=== PATIENT | male | born 1950 | race Caucasian/White ===

== ENCOUNTER 2024-06-13 22:35 | Emergency (ER) | payer MEDICARE, SELFPAY ==
[2024-06-13 22:46] VITALS: BP 122/81
--- NOTE | 2024-06-14 01:13 | ED.GENMED ---
History of Present Illness
General
Chief Complaint: Musculo-Skeletal Complaint
Source: patient and family (Son)
Exam Limitations: none
Time Seen by Provider: 06/14/24 00:29
History of Present Illness
History of Present Illness:
This is a 74 year old male that is brought in by son with Multiple complaints. Son states that he has been c/o pain in the left hand. Patient fell 10 days ago and fractured his clavicle. Patient was seen at [facility]. States that he has not been able
to move his fingers much but this has also been since his stroke. States that he has constipation and then when he moves his bowels he will have frequent stools. States that there is also now starting a sore on his buttocks. States that he has
periods where they feel he is incoherent and they are concerned that he is having mini strokes. States that he has been nauseated. Denies any fever, chills, chest pain, SOB, abd pain, vomiting, diarrhea, headache, dizziness, urinary burning.
Past History
Past History
ED Past Medical History: CVA (left sided weakness), GERD, Hypercholesterolemia, NIDDM, [place] (Multiple) and Other (Neuropathy, Armijo's palsey, PAD, Renal calculus, )
ED Past Surgical History: Cardiac (Stent, CABG, Ablation, Pacer/ Defibulator), Orthopedic (Right 2nd and 3rd tips of toes amputated) and Other (Right leg bypass )
Social History
Tobacco: Smoker
Alcohol: Occasional
Personal:
Living: with family (Son)
Review of Systems
Review of Systems
Other source history: family
All Other Systems: ROS reviewed and negative except as documented in HPI and ROS
Constitutional: Reports no symptoms; Denies fever or chills
EENT: Reports no symptoms
Respiratory: Reports no symptoms; Denies cough or trouble breathing
Cardiac: Reports no symptoms; Denies chest pain
ABD/GI: Reports nausea; Denies abdominal pain, vomiting or diarrhea
: Reports no symptoms; Denies dysuria, frequency or urgency
Musculoskeletal: Reports no symptoms
Skin: Reports no symptoms
Neurological: Reports no symptoms; Denies dizzy or headache
Psychiatric: Reports no symptoms
Phy Exam
General Physical Exam
General Presentation: no apparent distress
General age: appears stated age
General Skin: warm and dry
General Habitus: debilitated and elderly
General Mental: alert
General Hydration: appears well hydrated
ENT Exam
ENT Exam: TM's normal, pharynx normal and neck supple
Eye Exam
Eye Exam: EOMI
Cardiovascular Exam
Cardiovascular Exam: regular rate/rhythm, no edema and normal peripheral pulses
Pulmonary Exam
Pulmonary Exam: lungs clear, no respiratory distress, no rales, chest non tender, no crackles, no rhonchi, no wheezing and no cough
Gastrointestinal Exam
Gastrointestinal Exam: normal bowel sounds, non tender, soft, no organomegaly, no pulsatile mass, non distended and other (Stool negative for blood)
Musculoskeletal Exam
Musculoskeletal Exam: no edema and other (Left arm shoulder immobilizer. Left hand and fingers slightly swollen, barely moving his fingers. Negative for discomfort over the hand and fingers with palpation. Moving all other extremities)
Skin Exam
Skin Exam: normal color, warm/dry, no rash, no petechia and other (Small sacral decub noted)
Psychiatric Exam
Psychiatric Exam: normal mood/affect
Course
Orders/Labs/Results
Orders:
Orders
06/14/24 01:11
CT Head W/o Iv Contrast Urgent
Comment: CVA
Reason For Exam: change in mental status
Wrist, Left 3 Views CR [CR Wrist - Left Min 3 Views] Urgent
Comment:
Reason For Exam: Pain
06/14/24 01:30
Complete Blood Count/With Diff Urgent
Comprehensive Metabolic Panel Urgent
Abnormal Lab Results
06/14/24
01:30
RBC 4.59 L 10^6/uL
(4.70-6.10)
MCH 31.6 H pg
(27.0-31.0)
MPV 10.9 H fL
(7.4-10.4)
Absolute Monos (auto) 1.0 H 10^3/uL
(0.1-0.6)
Monocytes % 11.1 H %
(1.7-9.3)
BUN 23 H mg/dl
(9-20)
06/14/24 01:30
06/14/24 01:30
Vital Signs
Initial and Last Documented VS:
Initial Vital Signs
Temp Pulse Resp BP Pulse Ox
98.1 F 68 18 122/81 99
06/13/24 22:46 06/13/24 22:46 06/13/24 22:46 06/13/24 22:46 06/13/24 22:46
Last Documented Vital Signs
Temp Pulse Resp BP Pulse Ox
98.1 F 70 18 108/64 99
06/13/24 22:46 06/14/24 03:50 06/14/24 03:50 06/14/24 03:50 06/14/24 03:50
MDM/Problems Addressed
Differential Diagnosis Includes:
Failure to thrive, TIA's, wrist fracture
MDM/Problems Addressed:
This is a 74 year old male that is brought in by son with multiple complaints. Son states that he has had pain in the left hand that has gotten worse since he fell 10 days ago and fractures his clavicle. States that he has had constipation and then
will have frequent stools. States that they are afraid that he is having Mini strokes.
Will check labs. X-ray wrist and CT head.
Back into see patient and son. Explained that his blood work shows dehydration. Otherwise his labs are normal. CT of the head was negative for any acute process and Wrist X-ray was negative for fractures. Patient to follow up with the Orthopedic
specialist for further evaluation. Patient to use Tylenol 1000mg every 6 hours for pain. Heat or ice which ever makes him feels better. Suggested a donut for patient to sit on to help with skin brake down and will apply protective overing. Patient
to return with any concerns.
Chronic conditions affecting care: DM (Neuropathy) and Other (CVA with left sided weakness)
Acute Exacerbation and/or Progression of Chronic Illness:
NA
*Radiology
Radiology exam reviewed: radiology read reviewed (CT night hawk-No acute intracranial hemorrhage, herniation or hydrocephalus. Findings compatible with old right MCA territory stroke. Correlate with neurologic history. No definite CT evidence of
acute large territorial ischemia at this time. Elective MRI could be used for more sensitive detection ) and other (CT cont-of yperacute/acute infarction if clinically indicated. )
*Pulse Oximetry
Patient hypoxic: no
*EKG
Interpreted by ED Provider?: NA
Rate: EKG- N/A
*Cattle Examiner Interpretation
Rate: Cattle Examiner- N/A
*Critical Care Note
Total Time (30-74mins, 75-104mins- exclusive of procedures): Not Applicable
ED Attending Note
-
Portions of this chart may have been created with voice recognition software.� Occasional wrong word or��sound alike� substitutions may have occurred due to the inherent limitations of voice recognition software.
Discharge Plan
Departure
Patient Disposition: Home (Routine Discharge)
Date of Disposition: 06/14/24
Time of Disposition: 03:44
Patient with high blood pressure during this ER visit?: No
Condition: Good
Covid-19: Not Applicable
Discharge Problem:
Left wrist pain, Dehydration
Instructions: Common Wrist Injuries ED, Dehydration, Adult ED
Referrals:
Stoney Lyles DO [Family Provider] - Follow up in 2-3 days
Activity Restrictions/Additional Instructions:
As discussed, your blood work shows some dehydration. Otherwise your labs are normal. Your CT of the head is negative for any acute process. Your Wrist x-ray was negative for fractures. Please follow up with the family doctor for further evaluation.
You may use a donut to sit on to help with your skin brake down on your Bottom. Please increase your water intake to 8-8oz glasses daily. You may use Tylenol 1000mg every 6 hours for pain. Heat or ice which ever makes you feel better. Please
elevate your hand on a pillow to help decrease any swelling. IF YOU HAVE ANY OTHER CONCERNS PLEASE RETURN TO THE EMERGENCY ROOM.
Interventions
Interventions:
*Risk Screen - Suicide Last Done: 06/13/24 22:46
*General Assessment Last Done: 06/13/24 22:46
*Neglect/Abuse Screening Last Done: 06/13/24 22:46
*ED COVID-19 Vaccine History Last Done: 06/13/24 22:46
ED-Musculoskeletal Assessment Last Done: 06/14/24 01:34
Discharge Date and Time
Print Language: BARBADIAN
[2024-06-14 01:24] VITALS: BMI 20.3
[2024-06-14 01:31] VITALS: BP 117/80
--- NOTE | 2024-06-14 01:36 | EDRN ---
Pt sleeping when this RN entered room. Introduction made and explained plan of care. Pt argumentative with son over cbc being obtained. This RN asked pt if he is having pain three times and he responded to his son 'I don't want to get into it
with her.' Son informed pt this RN asked if he was having pain, pt did not respond. Son says pt has pain in his bottom and wrist. Pt unwilling to answer questions from this RN and provide HPI.
[2024-06-14 01:37] LABS: % Basophils 0.6 % (0-2); % Immature Granulocytes 0.3 % (0-0.5); % Monocytes 11.1 % (1.7-9.3); Absolute Basophils 0.1 10^3/uL (0-0.2); Absolute Eosinophils 0.3 10^3/uL (0-0.7); Absolute Lymphocytes 1.9 10^3/uL (1.2-3.4); Absolute Neutrophils 5.5 10^3/uL (1.4-6.5); Hematocrit 41.3 % (39.0-52.0); Hemoglobin 14.5 g/dL (13.0-18.0); Mean Corp Hgb Conc. 35.1 g/dL (33.0-37.0); Mean Corpuscular Hgb 31.6 pg (27.0-31.0); Mean Platelet Volume 10.9 fL (7.4-10.4); Nucleated Red Blood Cells % 0 % (-); Platelet Count 166 10^3/uL (130-400); Red Blood Cell Count 4.59 10^6/uL (4.70-6.10); Red Cell Dist. Width 13.9 % (11.5-14.5); White Blood Cell Count 8.7 10^3/uL (4.8-10.8)
[2024-06-14 02:00] VITALS: BP 105/80
[2024-06-14 02:00] LABS: ALT (SGPT) 28 U/L (0-50); AST (SGOT) 25 U/L (17-59); Albumin 3.9 g/dl (3.5-5.0); Alkaline Phosphatase 109 U/L (38-126); Blood Urea Nitrogen 23 mg/dl (9-20); Calcium 9.8 mg/dl (8.4-10.2); Carbon Dioxide 30 mmol/L (22-30); Chloride 102 mmol/L (98-107); Estimated Creatinine Clearance 45 ml/min; Glucose 81 mg/dl (70-99); Potassium 4.1 mmol/L (3.5-5.1); Sodium 141 mmol/L (135-145); Total Bilirubin 1.2 mg/dl (0.2-1.3); Total Protein 6.8 g/dl (6.3-8.2); eGFR 56.93
[2024-06-14 03:50] VITALS: BP 108/64
== END 2024-06-14 04:09 | disposition home or self-care (01) ==
LOC: EMR 22:35
PROVIDERS: Clinical Nurse Specialist Family Health; EMERGENCY PHYSICIAN Student in an Organized Health Care Education/Training Program; FAMILY PHYSICIAN Family Medicine
DX: M25.532 Pain in left wrist (principal); E86.0 Dehydration; E11.9 Type 2 diabetes mellitus without complications; E78.00 Pure hypercholesterolemia, unspecified; F17.200 Nicotine dependence, unspecified, uncomplicated; I69.954 Hemiplegia and hemiparesis following unspecified cerebrovascular disease affecting left non-dominant side; Z95.5 Presence of coronary angioplasty implant and graft; Z95.1 Presence of aortocoronary bypass graft; Z87.81 Personal history of (healed) traumatic fracture
CPT/HCPCS: 99284; 70450; 73110; 80053; 85025

== ENCOUNTER 2024-07-13 20:54 | Emergency (ER) | payer MEDICARE, SELFPAY ==
[2024-07-13 21:06] VITALS: BP 125/78
--- NOTE | 2024-07-14 00:51 | ED.GENMED ---
History of Present Illness
General
Chief Complaint: Fall
Source: patient and family
Exam Limitations: none
Time Seen by Provider: 07/13/24 23:51
Nursing documentation reviewed up to this point in time: agreed with
History of Present Illness
History of Present Illness:
Patient status post CVA in January 2024, with residual left-sided deficit, who requires assistance when ambulating, presents to ED secondary to continual left shoulder pain, after falling down, when he got up from chair yesterday. Patient has similar
fall 1 month ago when he was evaluated [facility], where x-ray revealed nondisplaced clavicle fracture. Patient has been wearing shoulder immobilizer with improvement. Denies any other injuries from the fall. Denies change in behavior.
Denies headache. Denies chest pain or shortness of breath. Denies abdominal pain. Denies loss of sensation or weakness. In addition, patient's son is concerned about his ongoing 'tailbone pain', which she has had over a month. Patient was
evaluated during initial fall and was told that he may be developing bedsore. Patient also has not been having successful bowel movements for over 1 week, despite utilizing number of hxqe-uiy-eihcrwq medications, including prune juice, MiraLAX, and
milk of magnesia.
Past History
Past History
ED Past Medical History: CVA (left sided weakness), GERD, Hypercholesterolemia, NIDDM, [place] (Multiple) and Other (Neuropathy, Armijo's palsey, PAD, Renal calculus, )
ED Past Surgical History: Cardiac (Stent, CABG, Ablation, Pacer/ Defibulator), Orthopedic (Right 2nd and 3rd tips of toes amputated) and Other (Right leg bypass )
Social History
Tobacco: Smoker
Alcohol: Occasional
Personal:
Living: with family (Son)
Review of Systems
Review of Systems
Allergies reviewed?: Yes
All Other Systems: ROS reviewed and negative except as documented in HPI and ROS
Constitutional: Reports no symptoms; Denies fever
EENT: Reports no symptoms
Respiratory: Reports no symptoms; Denies trouble breathing
Cardiac: Reports no symptoms; Denies chest pain or syncope
: Reports no symptoms; Denies incontinence
Musculoskeletal: Reports back pain and other (Shoulder pain)
Skin: Reports no symptoms
Neurological: Reports no symptoms
Phy Exam
Physical Exam
Physical Exam:
Physical Exam
General: no apparent distress, not acutely ill. afebrile.
Head: nc/at. eomi
Neck: supple. normal range of motion.
Heart: s1/s2 regular rate and rhythm, no murmur. equal radial pulses.
Lungs: no acute respiratory distress. clear bilaterally. chest wall nontender.
Abdomen: normal bowel sounds. not tender.
Neuro: alert and oriented. no focal neurological deficits
Skin: no rash
Psychiatric: well kept. interactive and cooperative
Extremities: mild left shoulder tenderness to palpation, without obvious deformity.
Course
Orders/Labs/Results
Orders:
Orders
07/13/24 21:05
CT Head W/o Iv Contrast Urgent
Comment:
Reason For Exam: fall
CR Clavicle - Left Complete Urgent
Comment:
Reason For Exam: fall
07/14/24 00:13
CR Abdomen - 1 View Urgent
Comment:
Reason For Exam: constipation
CR Lumbar Spine Comp Min 4 Vw* Urgent
Comment:
Reason For Exam: trauma
07/14/24 00:30
Phosphate Enema [Fleet Phosphate Enema-Adult] 135 ml .ROUTE .STK-MED ONE
07/14/24 00:55
Acetaminophen [Tylenol] 650 mg PO NOW STA
07/14/24 01:32
Phosphate Enema [Fleet Phosphate Enema-Adult] 135 ml RECTAL NOW STA
07/14/24 03:03
Lidocaine [Lidocaine 4% Patch] 1 patch TOPICAL NOW STA
Apply Lidocaine patch(s) to:: lower back
07/14/24 03:04
Magnesium Citrate [Citroma] 300 ml PO ONCE ONE
Vital Signs
Initial and Last Documented VS:
Initial Vital Signs
Temp Pulse Resp Pulse Ox
97.9 F 88 19 96
07/13/24 21:03 07/13/24 21:03 07/13/24 21:03 07/13/24 21:03
Last Documented Vital Signs
Temp Pulse Resp BP Pulse Ox
97.9 F 64 16 104/78 98
07/13/24 21:03 07/14/24 01:15 07/14/24 01:15 07/14/24 01:15 07/14/24 01:15
MDM/Problems Addressed
MDM/Problems Addressed:
History and exam concerning for ongoing nonspecific 'tailbone pain', along with disruption in bowel movements despite utilization of botp-gyr-uofikld medications. Rectal exam, performed at bedside in the presence of colitis, RN, reveals soft stool,
without any evidence of impacted stool. Patient initially given Fleet enema. Unfortunately, patient unable to withstand initial pressure and hold enema in. Discussed further treatment options, including milk molasses, with patient and son at
bedside. At this time, it is doubtful that patient will be able to tolerate another form of enema. As such, decision made to discharge patient home at this time, with magnesium citrate along with continued use of qqss-vig-fpjetrk medications, i.e.
MiraLAX. In addition, patient provided with lidocaine patch to lower back for comfort. Advised PCP follow-up for reevaluation this week.
*Critical Care Note
Total Time (30-74mins, 75-104mins- exclusive of procedures): Not Applicable
ED Attending Note
-
Portions of this chart may have been created with voice recognition software.� Occasional wrong word or��sound alike� substitutions may have occurred due to the inherent limitations of voice recognition software.
Discharge Plan
Departure
Patient Disposition: Home (Routine Discharge)
Date of Disposition: 07/14/24
Time of Disposition: 03:04
Patient with high blood pressure during this ER visit?: Yes
Discharge Problem:
Back pain, Constipation, Clavicle fracture
Instructions: Broken Collarbone ED, Constipation, Adult ED, Back Pain
Referrals:
UNKNOWN - PT DOES,NOT KNOW [Family Provider] -
Activity Restrictions/Additional Instructions:
As discussed, please follow-up with your primary care physician for reevaluation. In the meantime, recommend continual use of tbfc-fip-xnftzee medication, i.e. MiraLAX twice daily until regulated bowel movements, as well as application of lidocaine
patch to tailbone area.
Interventions
Interventions:
*General Assessment Last Done: 07/13/24 21:54
ED- Fall Risk Assessment Last Done: 07/13/24 21:54
*ED COVID-19 Vaccine History Last Done: 07/14/24 01:15
*Nursing Disposition Last Done: 07/14/24 03:49
ED-Musculoskeletal Assessment Last Done: 07/13/24 21:54
ED- Neurological Assessment Last Done: 07/13/24 21:54
ED-Skin Assessment Last Done: 07/13/24 21:54
Discharge Date and Time
Discharge Date/Time: 07/14/24 03:50
Print Language: GREEK
[2024-07-14] MEDS: TYLENOL 650 MG PO (01:08)
[2024-07-14 01:15] VITALS: BP 104/78
[2024-07-14] MEDS: FLEET PHOSPHATE ENEMA-ADULT 135 ML RECTAL (02:06)
[2024-07-14] MEDS: CITROMA 300 ML PO (03:09)
[2024-07-14] MEDS: LIDOCAINE 4% PATCH 1 PATCH TOPICAL (03:09)
== END 2024-07-14 03:50 | disposition home or self-care (01) ==
LOC: EMR 20:54
PROVIDERS: EMERGENCY PHYSICIAN Emergency Medicine
DX: S42.032A Displaced fracture of lateral end of left clavicle, initial encounter for closed fracture (principal); W07.XXXA Fall from chair, initial encounter; Z91.81 History of falling; K59.00 Constipation, unspecified; M54.9 Dorsalgia, unspecified; E11.9 Type 2 diabetes mellitus without complications; E78.00 Pure hypercholesterolemia, unspecified; F17.200 Nicotine dependence, unspecified, uncomplicated; I69.354 Hemiplegia and hemiparesis following cerebral infarction affecting left non-dominant side; K21.9 Gastro-esophageal reflux disease without esophagitis; I25.2 Old myocardial infarction; Z95.1 Presence of aortocoronary bypass graft; Z95.5 Presence of coronary angioplasty implant and graft
CPT/HCPCS: 99284; 70450; 72110; 73000; 74018

== ENCOUNTER 2024-08-18 12:19 | Inpatient (IN) | payer MEDICARE, SELFPAY ==
[2024-08-15 22:43] VITALS: BP 123/55
--- NOTE | 2024-08-15 23:33 | ED.GENMED ---
History of Present Illness
General
Chief Complaint: Bowel Problem
Source: patient
Exam Limitations: none
Time Seen by Provider: 08/15/24 23:11
History of Present Illness
History of Present Illness:
This is a 74 year old male that comes in with c/o constipation. States that he has not had a BM in the past 2 weeks. States that he thinks he is obstructed. Son States that he is on Miralax and had Magnesium citrate the last time that he was here.
States that this worked wonderful and then it didn't help any more. States that his who takes care of his bowel needs felt that his rectum was more distended. Patient states that he has felt a little nauseated. Denies any fever, chills, chest
pain, SOB, abd pain, vomiting, diarrhea, headache, dizziness, urinary burning.
Past History
Past History
ED Past Medical History: CVA (left sided weakness), GERD, Hypercholesterolemia, NIDDM, [place] (Multiple) and Other (Neuropathy, Armijo's palsey, PAD, Renal calculus, constipation)
ED Past Surgical History: Cardiac (Stent, CABG, Ablation, Pacer/ Defibulator), Orthopedic (Right 2nd and 3rd tips of toes amputated), Urological (lithotripsy) and Other (Right leg bypass )
Social History
Tobacco: Smoker
Alcohol: None
Personal:
Living: with family (Son)
Review of Systems
Review of Systems
All Other Systems: ROS reviewed and negative except as documented in HPI and ROS
Constitutional: Reports no symptoms; Denies fever or chills
EENT: Reports no symptoms
Respiratory: Reports no symptoms; Denies cough or trouble breathing
Cardiac: Reports no symptoms; Denies chest pain
ABD/GI: Reports nausea and constipated; Denies abdominal pain, vomiting or diarrhea
: Reports no symptoms; Denies dysuria, frequency or urgency
Musculoskeletal: Reports no symptoms
Skin: Reports no symptoms
Neurological: Reports no symptoms; Denies dizzy or headache
Psychiatric: Reports no symptoms
Phy Exam
General Physical Exam
General Presentation: no apparent distress
General age: appears stated age
General Skin: warm and dry
General Habitus: elderly
General Mental: alert
General Hydration: appears well hydrated
ENT Exam
ENT Exam: TM's normal, pharynx normal and neck supple
Eye Exam
Eye Exam: EOMI
Cardiovascular Exam
Cardiovascular Exam: regular rate/rhythm
Pulmonary Exam
Pulmonary Exam: lungs clear, no respiratory distress, no rales, chest non tender, no crackles, no rhonchi, no wheezing and no cough
Gastrointestinal Exam
Gastrointestinal Exam: normal bowel sounds, non tender, soft, no organomegaly, no pulsatile mass, non distended and other (soft stool felt in the rectal vault, Unable to remove any as just spins)
Musculoskeletal Exam
Musculoskeletal Exam: other (right arm weakness due to CVA)
Skin Exam
Skin Exam: normal color, warm/dry, no rash and no petechia
Psychiatric Exam
Psychiatric Exam: normal mood/affect
Course
Orders/Labs/Results
Orders:
Orders
08/15/24 23:32
Enema- Treatment ONCE
Type: Milk of Molasses
08/15/24 23:33
0.9% Sodium Chloride 500 ml [Nss] 500 ml IV BOLUS
08/15/24 23:48
Complete Blood Count/With Diff Urgent
Comprehensive Metabolic Panel Urgent
08/16/24 01:18
CT Abd/pelvis W Iv Cont Urgent
Reason For Exam: abd pain
Abnormal Lab Results
08/15/24
23:48
RBC 4.33 L 10^6/uL
(4.70-6.10)
MCH 31.6 H pg
(27.0-31.0)
MPV 11.7 H fL
(7.4-10.4)
BUN 22 H mg/dl
(9-20)
Glucose 162 H mg/dl
(70-99)
ALT 64 H U/L
(0-50)
08/15/24 23:48
08/15/24 23:48
Dehydration. hyperglycemia. ALT elevation.
Vital Signs
Initial and Last Documented VS:
Initial Vital Signs
Temp Pulse Resp BP Pulse Ox
98.2 F 68 16 123/55 98
08/15/24 22:43 08/15/24 22:43 08/15/24 22:43 08/15/24 22:43 08/15/24 22:43
Last Documented Vital Signs
Temp Pulse Resp BP Pulse Ox
98.2 F 68 16 123/55 98
08/15/24 22:43 08/15/24 22:43 08/15/24 22:43 08/15/24 22:43 08/15/24 22:43
MDM/Problems Addressed
Differential Diagnosis Includes:
Constipation, failure to Thrive
MDM/Problems Addressed:
This is a 74 year old male that comes in with c/o no BM for the past 2 weeks. Son states that he is on a bowel regiment and takes mirlax. States that he had Magnesium Citrate the last time that he was here and this cleaned him out. Patient states
that he feels that he has bowel obstruction
Will check labs. CT scan and given Enema.
Back into see patient and son. Patient is on the commode as was given an Enema. Patient states that he has so much pain and has trouble pushing. Will admit patient. Hospitalist notified.
Chronic conditions affecting care:
CVA
Acute Exacerbation and/or Progression of Chronic Illness:
CVA
*Radiology
Radiology exam reviewed: radiology read reviewed (CT night hawk- large amount of stool in the colon, including an 8.4cm impacted rectal stool ball. There is rectal wall thickening with surrounding fat stranding compatible with Stercoral colitis.
Colonic diverticulosis without evidence of diverticulitis. There is a 2cm area of somewhat nodular wall ), all reviewed NAD by ED Provider (CT cont- thickening involving the cecal base. (). Consider follow=up with colon cancer screening to
exclude a mass or polyp in this location. NO free fluid, free air or abscess. Nonobstructing stones within both kidneys. Scarring within both kidneys. Severe atherosclerosis. ) and other (CT cont- Distended gallbladder containing a few gallstones. )
*Pulse Oximetry
Patient hypoxic: no
*EKG
Interpreted by ED Provider?: NA
Rate: EKG- N/A
*Pupil Personnel Worker Interpretation
Rate: Pupil Personnel Worker- N/A
*Critical Care Note
Total Time (30-74mins, 75-104mins- exclusive of procedures): Not Applicable
ED Attending Note
-
Portions of this chart may have been created with voice recognition software.� Occasional wrong word or��sound alike� substitutions may have occurred due to the inherent limitations of voice recognition software.
Discharge Plan
Departure
Patient Disposition: Admit
Date of Disposition: 08/16/24
Time of Disposition: 02:09
Admit to: Med/Surg
Presentation/result/management discussed w/ accepting MD/DO: Hospitalist
Patient with high blood pressure during this ER visit?: No
Condition: Good
Covid-19: Not Applicable
Discharge Problem:
Constipation, Stercoral colitis
Referrals:
UNKNOWN - PT DOES,NOT KNOW [Family Provider] -
Interventions
Interventions:
*Risk Screen - Suicide Last Done: 08/15/24 22:43
*General Assessment Last Done: 08/15/24 22:43
*Neglect/Abuse Screening Last Done: 08/16/24 00:21
*ED COVID-19 Vaccine History Last Done: 08/15/24 22:43
CE-Xshxpg-Pxkprerisd Assessment Last Done: 08/15/24 23:45
Discharge Date and Time
Print Language: [place]
[2024-08-15] MEDS: NSS 500 IV (23:50)
[2024-08-16 00:03] LABS: % Basophils 0.9 % (0-2); % Eosinophils 4.4 % (0-6); % Immature Granulocytes 0.2 % (0-0.5); % Lymphocytes 22.5 % (20.5-51.1); % Monocytes 7.4 % (1.7-9.3); % Neutrophils 64.6 % (42.2-75.2); Absolute Basophils 0.1 10^3/uL (0-0.2); Absolute Eosinophils 0.2 10^3/uL (0-0.7); Absolute Lymphocytes 1.2 10^3/uL (1.2-3.4); Absolute Monocytes 0.4 10^3/uL (0.1-0.6); Absolute Neutrophils 3.6 10^3/uL (1.4-6.5); Hematocrit 40.6 % (39.0-52.0); Hemoglobin 13.7 g/dL (13.0-18.0); Mean Corp Hgb Conc. 33.7 g/dL (33.0-37.0); Mean Corpuscular Hgb 31.6 pg (27.0-31.0); Mean Corpuscular Volume 93.8 fL (80.0-94.0); Mean Platelet Volume 11.7 fL (7.4-10.4); Nucleated Red Blood Cells % 0 % (-); Platelet Count 140 10^3/uL (130-400); Red Blood Cell Count 4.33 10^6/uL (4.70-6.10); Red Cell Dist. Width 13.9 % (11.5-14.5); White Blood Cell Count 5.5 10^3/uL (4.8-10.8)
[2024-08-16 00:14] LABS: ALT (SGPT) 64 U/L (0-50); AST (SGOT) 36 U/L (17-59); Albumin 3.9 g/dl (3.5-5.0); Alkaline Phosphatase 77 U/L (38-126); Blood Urea Nitrogen 22 mg/dl (9-20); Calcium 9.4 mg/dl (8.4-10.2); Carbon Dioxide 30 mmol/L (22-30); Chloride 100 mmol/L (98-107); Glucose 162 mg/dl (70-99); Sodium 138 mmol/L (135-145); Total Protein 6.5 g/dl (6.3-8.2); eGFR 56.93
[2024-08-16] MEDS: TORADOL 30 MG IV (02:19)
--- NOTE | 2024-08-16 02:25 | HPS.HSE ---
Family Physician
-
Family Physician: NOT KNOW UNKNOWN - PT DOES
Chief Complaint
-
Constipation and abdominal pain
History of Present Illness
This is a 74 y.o with history of CVA w/ residual left sided weakness, CAD s/p NC and CABG, s/p cardiac ablation, ney-obaszrc-mzwxrpwho diabetes, GERD, renal calculus coming to the emergency department with constipation.
Patient reports episode of frequent constipation. He states that he has not had a bowel movement in 1 week. Prior to that he states he has had few weeks of chronic constant and intermittent constipation. He is now unable to tolerate p.o. due to
the abdominal pain. He also reports or rectal pain with attempted bowel movement. He denies any nausea or vomiting. He denies any fevers or chills. He denies any urinary symptoms.
Patient reported that he was seen in the emergency department a few months ago with similar symptoms. At that time he was given magnesium citrate and did have a bowel movement overnight. He was discharged on MiraLAX. He reported that the MiraLAX
helped for a while but it has since stopped being effective. He states that he has used Dulcolax in the past with some efficacy. He has not tried to use any laxatives this time. States that felt that his rectum was more distended.
Patient was quite uncomfortable in the emergency department and had a small bowel movement with 2 small pieces of semiformed stool after enema with milk of molasses.
Vital signs in the ED were stable with a blood pressure of 123/55, pulse of 68. CBC was unremarkable. Electrolytes BUN/creatinine were mostly within normal limits and unchanged from prior. Had a CT of the abdomen pelvis which showed large colonic
stool burden with 8.4 cm or impacted rectal stool ball. There was associated stercoral colitis. There was a finding of a 2 cm nodular area in the cecum that requires follow-up screening for polyps or cancer.
Medical History
Past Medical History
Past Medical History: Reports CVA (Left-sided weakness), GERD, Hypercholesterolemia, NIDDM and NC (Status post stent)
Additional Past Medical History:
PAD
Nephrolithiasis
Past Surgical History: Reports Cardiac (CABG,) and Orthopedic (Amputation of right second and third tips of toes.)
Additional Past Surgical History:
Right leg vascular bypass
Patient/defibrillator
Social History
Tobacco: Smoker
Alcohol: None
Drug: None
Personal:
Living: With Family
Employment: Retired
Family History
Family History: Not pertinent
Allergies / Home Medications
Allergies reflects when Allergies were last updated in [employer].
Home Medications with original date entered in [employer]
Allergy/Medication List:
Allergies
Allergy/AdvReac Type Severity Reaction Status Date / Time
No Known Allergies Allergy Verified 08/15/24 22:42
If medication reconciliation has not been performed, why?: Medication List N/A
Review of Systems
-
History Source: Patient
Constitutional: Reports No Symptoms
EENT: Reports No Symptoms
Respiratory: Reports No Symptoms
Cardiac: Reports No Symptoms
Abdomen/GI: Reports Abdominal Pain, Nausea and Constipated
: Reports No Symptoms
Musculoskeletal: Reports No Symptoms
Skin: Reports No Symptoms
Neurological: Reports No Symptoms
Endocrine: Reports No Symptoms
Hematologic/Lymphatic: Reports No Symptoms
Psych: Reports No Symptoms
Physical Exam
Vital Signs
Vital Signs
Temp Pulse Resp BP Pulse Ox
98.2 F 68 16 123/55 98
08/15/24 22:43 08/15/24 22:43 08/15/24 22:43 08/15/24 22:43 08/15/24 22:43
Physical Exam
General: Well Developed, Well Nourished, No Apparent Distress and Comfortable
HEENT: NormoCephalic, Anicteric, Moist mucous membranes and Atraumatic
Respiratory: Clear
Cardiac: S1/S2 and Regular Rhythm
GI: Soft, Non Distended and Normal Bowel Sounds
Rectal: Brown
Genito-urinary: Deferred by me
Musculoskeletal: No Clubbing, No Cyanosis and No Edema
Skin: Warm and Dry
Neuro: AO x 3, Cranial Nerves Intact and Other (left sided weakness)
Psych: Calm
Laboratory Results
-
08/15/24 23:48
08/15/24 23:48
Laboratory Results
Total Bilirubin 1.0 mg/dl (0.2-1.3) 08/15/24 23:48
AST 36 U/L (17-59) 08/15/24 23:48
ALT 64 U/L (0-50) H 08/15/24 23:48
Alkaline Phosphatase 77 U/L (38-126) 08/15/24 23:48
Data Reviewed
-
CT Scan: Report Reviewed by me
Lab Data: Labs Reviewed by me
Impression/Plan
-
IMPRESSION:
Severe constipation with rectal impaction.
PLAN:
1. Constipation
- admit to med/surg obs
- s/p enema in ED with small bm
- refused attempt at manual disimpaction due to rectal discomfort
- start mag-citrate now, MoM PRN with senna/colace bid until bm
- attempt disimpaction after pain improved if needed.
- will need follow up with GI for cecal lesion finding on CT
- clear liquid diet, anti-emetics, maintenance fluids
2. NIDDM
- npo for now except meds
- sliding scale insulin achs
3. CAD/Cardiac - Patient does not know his current med management, awaiting on son to update medications
DVT PPX - heparin sq, scd
Code status - full code
[2024-08-16 02:36] VITALS: BP 121/75
[2024-08-16] MEDS: CITROMA 300 ML PO (02:47)
[2024-08-16 03:14] VITALS: BMI 24.1
[2024-08-16] MEDS: 0.45%NACL 1000 IV (03:52)
[2024-08-16 04:46] VITALS: BP 99/58
[2024-08-16 08:12] LABS: Glucose - Point of Care 110 mg/dl (70-99)
[2024-08-16] MEDS: HEPARIN 5000 UNITS SC ×2 (08:31→20:30)
[2024-08-16] MEDS: SENOKOT-S 1 TABLET PO ×2 (08:31→20:30)
[2024-08-16] MEDS: TYLENOL 650 MG PO (09:02)
--- NOTE | 2024-08-16 10:07 | CM ---
Case management reviewed chart. Patient is here for colitis. He lives at home with his son, DESMOND and their family. It is a ML home. He shared that he uses a wheelchair and needs assistance with mobilizing. He does not drive. He has an active PCP and
pharmacy. He is retired. Denies at +SDOHs.
ANTICIPATED DISCHARGE PLAN: Transport home with family, once medically cleared.
--- NOTE | 2024-08-16 10:10 | PTCARENOTE ---
Enema ordered by hospitalist. Pt made aware and refusing until he sees doctor. Pt incontinent of loose/brown stool.
[2024-08-16 11:37] VITALS: BP 90/59
[2024-08-16 12:50] LABS: Glucose - Point of Care 123 mg/dl (70-99)
--- NOTE | 2024-08-16 12:50 | W.PN.UPDATE ---
Update Note
Progress Note Update
Seen and evaluated.
Per nursing has had some small bowel movements overnight now with some leakage.
Per Mr. Almanza continues to have rectal pain.
States he does not want any more enemas nor disimpactions as he has not had a anal fissure that required surgical intervention in the past and does not want to go down that road.
S/p mag citrate. Consult GI
[2024-08-16 13:35] VITALS: BP 105/67; BMI 20.4
[2024-08-16 15:00] VITALS: BP 107/64
[2024-08-16] MEDS: TORADOL 10 MG IV (15:09)
[2024-08-16 17:10] LABS: Glucose - Point of Care 92 mg/dl (70-99)
[2024-08-16 21:09] LABS: Glucose - Point of Care 112 mg/dl (70-99)
[2024-08-16 23:47] VITALS: BP 111/63
[2024-08-17] MEDS: MELATONIN 5 MG PO ×2 (01:52→21:15)
[2024-08-17] MEDS: TORADOL 10 MG IV ×2 (02:54→17:43)
[2024-08-17] MEDS: 0.45%NACL 1000 IV (05:53)
[2024-08-17 07:00] VITALS: BP 105/65
[2024-08-17 07:28] LABS: Glucose - Point of Care 86 mg/dl (70-99)
[2024-08-17] MEDS: SENOKOT-S 1 TABLET PO ×2 (09:57→21:16)
[2024-08-17] MEDS: HEPARIN 5000 UNITS SC ×2 (09:57→21:15)
[2024-08-17 12:07] LABS: Glucose - Point of Care 87 mg/dl (70-99)
--- NOTE | 2024-08-17 13:33 | CON.GI ---
Addendum entered and electronically signed by Brittany Sweet MD 08/17/24 16:46:
I saw and examined the patient.
The EMERGENCY COMMUNICATIONS DISPATCHER or PA's note was reviewed and I agree with the note.
Comment: 74-year-old male with history of diabetes, CAD, CVA 01/2024 on aspirin and Plavix presenting with constipation with no bowel movements in the last 1 week. He does have history of prior constipation and was following up with Dr. Hdez
Srikanth at [facility], reports being treated with MiraLAX in 2022 and was doing well but recently stopped working and he has not been taking any bowel regimen. He is also bedbound from his stroke since January and has had issues with constipation where he
would not have bowel movement for several days. No abdominal pain but did have some rectal pain on and off. No nausea or vomiting. No blood in the stool or black stool. Never had colonoscopy. CT scan abdomen and pelvis in the emergency showing
showing significant amount of stool in the rectum and sigmoid with stercoral colitis and also focal thickening in the cecum.
Rectal exam today showing soft stool without any impaction. No evidence of anemia on labs.
-Constipation with stercoral proctitis and significant stool in the left colon
CT showing focal thickening cecum with no prior history of colonoscopy
Start with milk of molasses enema to clear out the colon followed by magnesium citrate 300 mL. He will also need either MiraLAX prep or Colyte once he starts to move his bowels to clear out the large amount of stool in the colon. He will need
colonoscopy to evaluate the area in the cecum, patient contemplating as he wanted to get this with his GI at [facility]. Encouraging that patient should get his colonoscopy while he is admitted and be prepped by [facility]. Last Plavix
08/15. If patient does decide to have colonoscopy, earliest he would be able to do it would be 08/20 or 06/21.
He will need to be on a bowel regimen prior to discharge.
Will follow
Original Note:
Consultation
-
Date/Time Consultation Requested: 08/17/24 1315
Date/Time Consultation Performed: 08/17/24 1330
Requesting Provider: Mahad Bueno MD
Performing Provider: JOELLE Gabriel, Brittany Sweet MD
Reason for Consultation: constipation
Medical History
Chief Complaint / HPI
Chief Complaint: constipation
History of Present Illness:
Pt is a 74yo with hx CVA in January 2024 with left sided weakness, carotid disease on ASA and Plavix, skin CA, GERD, hypercholesterolemia, NIDDM, [place] with prior stents , neuropathy, prior armijo's palsy, PAD, renal calculi, anal fissure with onset of
constipation with no stool in 1 week. Pt was given enema in ER and mag citrate with persistent fecal leakage. CT done 08/16 with persistent fecal retention in rectum and sigmoid with stercoral colitis and impaction with focal wall thickening of
cecum. In review with patient hx chronic constipation. He was doing well with Miralax until he has CVA several months ago with decreased motility. He also admits to recent fall with clavicle fracture. He reports up to 40 lbs wt loss in past
year. He admits to decreased appetite with constipation and some nausea. He denies dysphagia, abdominal pain, vomiting, GERD, or rectal bleeding but does not occasional bleeding with hemorrhoids. No hx colonoscopy in past.
Past Medical History
Past Medical History: Cancer (skin CA), CVA (left sided weakness), GERD, Hypercholesterolemia, NIDDM, [place] (multiple) and Other (Neuropathy, Armijo's palsy, PAD, Renal calculus, constipation, carotid disease )
Past Surgical History: Cardiac (CABG, stent, ablation, pacer, defibrillator), Orthopedic (Right 2nd and 3rd tips of toes amputated), Urological and Other (Right leg bypass )
Social History
Tobacco: Smoker
Alcohol: None
Drug: None
Living: With Family (son)
Family History
Family History: Other (mother with colitis no family hx colon Ca or polyps)
Allergies / Home Medications
Allergy/AdvReac Type Severity Reaction Status Date / Time
No Known Allergies Allergy Verified 08/15/24 22:42
�Medication �Instructions �Recorded
acetaminophen 500 mg tablet 1,000 mg PO BID Pain 08/16/24
(Tylenol Extra Strength)
aspirin 81 mg tablet,delayed 81 mg PO DAILY Blood Clot 08/16/24
release Prevention/Tx
atorvastatin 40 mg tablet 40 mg PO HS High Cholesterol 08/16/24
baclofen 10 mg tablet 10 mg PO BID Muscle Spasms 08/16/24
cholecalciferol (vitamin D3) 125 125 mcg PO DAILY Supplement 08/16/24
mcg (5,000 unit) tablet (Vitamin
D3)
clopidogrel 75 mg tablet 75 mg PO DAILY Blood Clot 08/16/24
Prevention/Tx
gabapentin 300 mg capsule 300 mg PO BID Pain 08/16/24
mexiletine 150 mg capsule 150 mg PO BID Antiarrhythmic Agent 08/16/24
pantoprazole 40 mg tablet,delayed 40 mg PO DAILY GERD 08/16/24
release
Review of Systems
-
History Source: Patient
Constitutional: Reports Weight Loss and Fatigue
EENT: Reports No Symptoms
Respiratory: Reports No Symptoms
Cardiac: Reports No Symptoms
Abdomen/GI: Reports Nausea, Diarrhea, Constipated and Other (rectal pain with impaction)
: Reports No Symptoms
Musculoskeletal: Reports Other (difficulty with movement with clavicle fx )
Skin: Reports No Symptoms
Neurological: Reports Weakness
Endocrine: Reports No Symptoms
Hematologic/Lymphatic: Reports No Symptoms
Vital Signs
Temp Pulse Resp BP Pulse Ox
97.3 F 71 16 105/65 97
08/17/24 07:00 08/17/24 07:00 08/17/24 07:00 08/17/24 07:00 08/17/24 09:30
Physical Exam
Exam
General: Well Developed, Well Nourished and No Apparent Distress
HEENT: Normocephalic and Anicteric
Respiratory: Clear
Cardiac: Regular Rhythm
GI: Soft, Non Tender and Non Distended
Rectal: Other (Dr. Sweet with soft impaction with difficulty to disimpact stool)
Musculoskeletal: No Clubbing and No Cyanosis
Skin: Warm and Dry
Neuro: Awake, Alert and Other (left side weakness )
Psych: Calm
Results
WBC 5.5 10^3/uL (4.8-10.8) 08/15/24 23:48
Hgb 13.7 g/dL (13.0-18.0) 08/15/24 23:48
Hct 40.6 % (39.0-52.0) 08/15/24 23:48
MCV 93.8 fL (80.0-94.0) 08/15/24 23:48
Plt Count 140 10^3/uL (130-400) 08/15/24 23:48
Absolute Neuts (auto) 3.6 10^3/uL (1.4-6.5) 08/15/24 23:48
PT Cancelled 08/16/24 04:28
INR Cancelled 08/16/24 04:28
Sodium 138 mmol/L (135-145) 08/15/24 23:48
Potassium 4.0 mmol/L (3.5-5.1) 08/15/24 23:48
Chloride 100 mmol/L (98-107) 08/15/24 23:48
Carbon Dioxide 30 mmol/L (22-30) 08/15/24 23:48
BUN 22 mg/dl (9-20) H 08/15/24 23:48
Creatinine 1.3 mg/dL (0.7-1.3) 08/15/24 23:48
Calcium 9.4 mg/dl (8.4-10.2) 08/15/24 23:48
Total Bilirubin 1.0 mg/dl (0.2-1.3) 08/15/24 23:48
AST 36 U/L (17-59) 08/15/24 23:48
ALT 64 U/L (0-50) H 08/15/24 23:48
Alkaline Phosphatase 77 U/L (38-126) 08/15/24 23:48
Diagnostic Image Results:
08/16/24 CT Abd/pelvis W Iv Cont
1. Pronounced fecal retention within the rectum and sigmoid colon, rectum measuring up to 8.5 cm in diameter. Mesenteric fat stranding adjacent to the rectum, suggestive of stercoral colitis and/or fecal impaction.
2. Extensive arterial plaque detailed above. Suspected occlusion of both superficial femoral arteries. Please correlate for symptoms of peripheral arterial disease, and if indicated with ankle brachial indices. Extensive calcified and ulcerated
plaque of the abdominal aorta.
3. Mild focal wall thickening within the cecum. Consider elective colonoscopy for further evaluation.
4. Bilateral nephrolithiasis without hydronephrosis.
5. Mild prostatic enlargement.
Prior GI Procedures:
Colonoscopy: none
Assessment / Plan
-
Pt is a 74yo with hx CVA in January 2024 with left sided weakness, carotid disease on ASA and Plavix, skin CA, GERD, hypercholesterolemia, NIDDM, [place] with prior stents , neuropathy, prior armijo's palsy, PAD, renal calculi, anal fissure with onset of
constipation with no stool in 1 week. Pt was given enema in ER and mag citrate with persistent fecal leakage. CT done 08/16 with persistent fecal retention in rectum and sigmoid with stercoral colitis and impaction with focal wall thickening of
cecum. In review with patient hx chronic constipation. He was doing well with Miralax until he has CVA several months ago with decreased motility. He also admits to recent fall with clavicle fracture. He reports up to 40 lbs wt loss in past
year. He admits to decreased appetite with constipation and some nausea.
-stercoral colitis with rectal and sigmoid impaction
-chronic constipation
-CT with focal wall thickening of cecum
-CVA with left sided weakness and decreased mobility
-hx anal fissures
-clavicle fracture
other med problems:
-CAD with [place]/prior CABG
-hx carotid disease on ASA and Plavix
-NIDDM
-neuropathy
-armijo's palsy
-renal calculi
PLAN:
Etiology of symptoms with concern for fecal impaction/stercoral colitis related to chronic constipation, immobility etc
s/p MOM enema and mag citrate since admission with continued impaction
s/p rectal exam with Dr. Sweet with difficulty to disimpact soft stool
will given another enema and mag citrate
reviewed with nursing to try to get out of bed if able for enema
cont clear diet
reviewed with patient need to consider colonoscopy after clear out for focal thickening of cecum on CT-
he prefers to get completed at [facility] but may be difficulty for OP colon with hx CVA/mobility issues
pt was on ASA and Plavix prior to admission --ok to resume ASA if needed-- cont to hold Plavix if patient agrees to eventual colonoscopy
pt unsure of last Plavix dose but no dose since admission 08/15
will need daily bowel regiment on discharge
pt remains with stable normal hbg since admission
will follow
-
-
Thank you for consultation and allowing me to participate in the patient's care. Please call the vehicle modification technician GI physician during the after hours with any questions or concerns.
[2024-08-17 14:15] LABS: % Basophils 0.5 % (0-2); % Eosinophils 4.4 % (0-6); % Immature Granulocytes 0.4 % (0-0.5); % Lymphocytes 18.9 % (20.5-51.1); % Monocytes 10.1 % (1.7-9.3); % Neutrophils 65.7 % (42.2-75.2); Absolute Eosinophils 0.3 10^3/uL (0-0.7); Absolute Lymphocytes 1.1 10^3/uL (1.2-3.4); Absolute Monocytes 0.6 10^3/uL (0.1-0.6); Absolute Neutrophils 3.7 10^3/uL (1.4-6.5); Hematocrit 42.8 % (39.0-52.0); Hemoglobin 14.3 g/dL (13.0-18.0); Mean Corp Hgb Conc. 33.4 g/dL (33.0-37.0); Mean Corpuscular Hgb 31.8 pg (27.0-31.0); Mean Corpuscular Volume 95.1 fL (80.0-94.0); Mean Platelet Volume 11.6 fL (7.4-10.4); Nucleated Red Blood Cells % 0 % (-); Platelet Count 125 10^3/uL (130-400); Red Cell Dist. Width 13.7 % (11.5-14.5); White Blood Cell Count 5.6 10^3/uL (4.8-10.8)
[2024-08-17 14:39] LABS: ALT (SGPT) 45 U/L (0-50); AST (SGOT) 28 U/L (17-59); Albumin 3.6 g/dl (3.5-5.0); Alkaline Phosphatase 92 U/L (38-126); Blood Urea Nitrogen 15 mg/dl (9-20); Calcium 8.8 mg/dl (8.4-10.2); Carbon Dioxide 28 mmol/L (22-30); Chloride 100 mmol/L (98-107); Estimated Creatinine Clearance 52 ml/min; Glucose 85 mg/dl (70-99); Potassium 3.8 mmol/L (3.5-5.1); Sodium 134 mmol/L (135-145); Total Bilirubin 1.5 mg/dl (0.2-1.3); Total Protein 6.2 g/dl (6.3-8.2); eGFR > 60.00
[2024-08-17 15:00] VITALS: BP 130/64
[2024-08-17] MEDS: UNASYN IV ×2 (15:03→21:19)
[2024-08-17] MEDS: NSS 1000 IV (15:04)
[2024-08-17] MEDS: ZOFRAN 4 MG IV (15:19)
--- NOTE | 2024-08-17 15:37 | W.PN.HOSP.TC ---
Today's Communication/Plan
-
See plan
Assessment / Plan
Assessment / Plan
Impression:
Severe constipation
Stercoral colitis
Other conditions:
CAD with prior history of MN and CABG
Carotid artery disease
DAPT with aspirin and Plavix
Gwz-[id number]-hgmbwhamo diabetes
Neuropathy
Armijo's palsy
History of nephrolithiasis.
Plan:
Severe constipation
Stercoral colitis with CT scan showing thickening of the cecum.
Remains constipated with overflow diarrhea status post milk of magnesia enema.
GI consultation.
Empiric antibiotics: Unasyn to cover intra-abdominal pathogen
Attempt to disimpact by GI
Attempt to repeat enema with mag citrate
Clear liquid diet.
May benefit for inpatient colonoscopy.
Continue aspirin and hold Plavix
Continue IV fluids
Type 2 diabetes.
Glucose lowering medications upon presentation
Update hemoglobin A1c
Continue basal bolus protocol with serial Accu-Cheks
Carotid artery disease
CAD
On dual antiplatelet therapy prior to presentation
Hold Plavix for possible endoscopic procedure constipation
Anticipated Discharge: 24 - 48 hours
Subjective/Interval History
-
Date of Service: August 17, 2024
Objective Data
-
Labs:
Laboratory Results
08/17/24
13:45
WBC 5.6
Hgb 14.3
Hct 42.8
Plt Count 125 L
Sodium 134 L
Potassium 3.8
Chloride 100
Carbon Dioxide 28
BUN 15
Creatinine 1.1
Glucose 85
Calcium 8.8
Total Bilirubin 1.5 H
AST 28
ALT 45
Alkaline Phosphatase 92
Vital Signs:
Vital Signs
Temp Pulse Resp BP Pulse Ox
97.3 F 71 16 105/65 97
08/17/24 07:00 08/17/24 07:00 08/17/24 07:00 08/17/24 07:00 08/17/24 09:30
I&O
08/16/24 08/17/24 08/18/24
06:59 06:59 06:59
Intake Total 120 / 120 1160 / 1160
Output Total 400 / 400
Balance -280 / -280 1160 / 1160
Physical Exam
-
General: Well Developed and No Apparent Distress
HEENT: Normocephalic, Atraumatic and Moist Mucous Membranes
Respiratory: Clear to Auscultation
Cardiac: Regular Rhythm and S1/S2; Negative Murmur, Rub or Gallop
GI: Soft, Nontender, Nondistended and Normal Bowel Sounds; Negative Organomegaly
Rectal: Deferred by Provider
Musculoskeletal: No Clubbing, No Cyanosis and No Edema
Skin: Negative Rash
Neuro: Nonfocal/Grossly Intact
[2024-08-17 17:08] LABS: Glucose - Point of Care 92 mg/dl (70-99)
--- NOTE | 2024-08-17 18:30 | PTCARENOTE ---
1830 Milk and Molasses enema given as ordered. Noted pt could not retain most of enema, continue to monitor. Reported to tester electronic scale nurse.
[2024-08-17] MEDS: CITROMA 300 ML PO (21:20)
[2024-08-17 22:20] LABS: Glucose - Point of Care 132 mg/dl (70-99)
[2024-08-17 23:34] VITALS: BP 102/59
[2024-08-18] MEDS: NSS 1000 IV (01:06)
[2024-08-18] MEDS: TORADOL 10 MG IV ×2 (01:06→07:58)
[2024-08-18] MEDS: UNASYN IV ×3 (02:40→15:35)
[2024-08-18 07:50] VITALS: BP 128/73
[2024-08-18] MEDS: HEPARIN 5000 UNITS SC (08:01)
[2024-08-18] MEDS: SENOKOT-S 1 TABLET PO (08:02)
[2024-08-18 08:14] LABS: Glucose - Point of Care 107 mg/dl (70-99)
[2024-08-18 08:15] LABS: % Basophils 0.3 % (0-2); % Eosinophils 3.7 % (0-6); % Immature Granulocytes 0.2 % (0-0.5); % Lymphocytes 16.8 % (20.5-51.1); % Monocytes 10.2 % (1.7-9.3); % Neutrophils 68.8 % (42.2-75.2); Absolute Eosinophils 0.2 10^3/uL (0-0.7); Absolute Monocytes 0.6 10^3/uL (0.1-0.6); Absolute Neutrophils 4.1 10^3/uL (1.4-6.5); Hemoglobin 14.4 g/dL (13.0-18.0); Mean Corp Hgb Conc. 33.5 g/dL (33.0-37.0); Mean Corpuscular Volume 92.5 fL (80.0-94.0); Mean Platelet Volume 12.5 fL (7.4-10.4); Nucleated Red Blood Cells % 0 % (-); Platelet Count 130 10^3/uL (130-400); Red Blood Cell Count 4.65 10^6/uL (4.70-6.10); Red Cell Dist. Width 13.7 % (11.5-14.5); White Blood Cell Count 5.9 10^3/uL (4.8-10.8)
[2024-08-18 08:49] LABS: ALT (SGPT) 37 U/L (0-50); AST (SGOT) 24 U/L (17-59); Albumin 3.7 g/dl (3.5-5.0); Alkaline Phosphatase 94 U/L (38-126); Blood Urea Nitrogen 13 mg/dl (9-20); Calcium 8.7 mg/dl (8.4-10.2); Carbon Dioxide 26 mmol/L (22-30); Chloride 101 mmol/L (98-107); Estimated Creatinine Clearance 52 ml/min; Glucose 113 mg/dl (70-99); Potassium 3.7 mmol/L (3.5-5.1); Sodium 136 mmol/L (135-145); Total Bilirubin 1.1 mg/dl (0.2-1.3); Total Protein 6.3 g/dl (6.3-8.2); eGFR > 60.00
--- NOTE | 2024-08-18 11:06 | W.PN.GI.CBS2 ---
Today's Communication / Plan
-
PLAN:
Etiology of symptoms with concern for fecal impaction/stercoral colitis related to chronic constipation, immobility etc
s/p rectal exam with difficulty to disimpact soft stool
s/p MOM enema and mag citrate -seems to have responded well.
cont clear diet. Check abdominal x-ray and if stool burden improved in the rectum, we could start with Colyte prep to clear out the colon.
Okay to advance to full liquid diet and see how he does.
reviewed with patient need to consider colonoscopy after clear out for focal thickening of cecum on CT-had conversation and explained to the patient that the best time to have the colonoscopy is while he is admitted to the hospital. If he goes back
home, especially since he is bedbound with his stroke, it might be a challenge to do his prep. Patient's primary GI is Dr. Duke at [facility], he wants to go back to her to get the colonoscopy in spite of knowing the challenges with prep.
he prefers to get completed at [facility] but may be difficulty for OP colon with hx CVA/mobility issues
pt unsure of last Plavix dose but no dose since admission 08/15
will need daily bowel regiment on discharge . Would start with MiraLAX 1 capful daily
pt remains with stable normal hbg since admission
will follow
Assessment / Plan
-
Pt is a 74yo with hx CVA in January 2024 with left sided weakness, carotid disease on ASA and Plavix, skin CA, GERD, hypercholesterolemia, NIDDM, [place] with prior stents , neuropathy, prior elliott's palsy, PAD, renal calculi, anal fissure with onset of
constipation with no stool in 1 week. Pt was given enema in ER and mag citrate with persistent fecal leakage. CT done 08/16 with persistent fecal retention in rectum and sigmoid with stercoral colitis and impaction with focal wall thickening of
cecum. In review with patient hx chronic constipation. He was doing well with Miralax until he has CVA several months ago with decreased motility. He also admits to recent fall with clavicle fracture. He reports up to 40 lbs wt loss in past
year. He admits to decreased appetite with constipation and some nausea.
-stercoral colitis with rectal and sigmoid impaction
-chronic constipation
-CT with focal wall thickening of cecum
-CVA with left sided weakness and decreased mobility
-hx anal fissures
-clavicle fracture
other med problems:
-CAD with CA/prior CABG
-hx carotid disease on ASA and Plavix
-NIDDM
-neuropathy
-elliott's palsy
-renal calculi
PLAN:
Etiology of symptoms with concern for fecal impaction/stercoral colitis related to chronic constipation, immobility etc
s/p rectal exam with difficulty to disimpact soft stool
s/p MOM enema and mag citrate -seems to have responded well.
cont clear diet. Check abdominal x-ray and if stool burden improved in the rectum, we could start with Colyte prep to clear out the colon.
Okay to advance to full liquid diet and see how he does.
reviewed with patient need to consider colonoscopy after clear out for focal thickening of cecum on CT-had conversation and explained to the patient that the best time to have the colonoscopy is while he is admitted to the hospital. If he goes back
home, especially since he is bedbound with his stroke, it might be a challenge to do his prep. Patient's primary GI is Dr. Duke at [place], he wants to go back to her to get the colonoscopy in spite of knowing the challenges with prep.
he prefers to get completed at [facility] but may be difficulty for OP colon with hx CVA/mobility issues
pt unsure of last Plavix dose but no dose since admission 08/15
will need daily bowel regiment on discharge . Would start with MiraLAX 1 capful daily
pt remains with stable normal hbg since admission
will follow
Subjective
Subjective
Date of Service: August 18, 2024
Patient responded well to milk of molasses enema magnesium citrate, as per RN, had multiple bowel movements overnight and 2 bowel movements this morning
On clear liquid diet
Objective
Data Reviewed
Laboratory Data:
Laboratory Results
08/18/24 06:34
08/18/24 06:34
Laboratory Results
PT Cancelled 08/16/24 04:28
INR Cancelled 08/16/24 04:28
Total Bilirubin 1.1 mg/dl (0.2-1.3) 08/18/24 06:34
AST 24 U/L (17-59) 08/18/24 06:34
ALT 37 U/L (0-50) 08/18/24 06:34
Alkaline Phosphatase 94 U/L (38-126) 08/18/24 06:34
Vital Signs and I&O:
Vital Signs
Temp Pulse Resp BP Pulse Ox
98.1 F 72 16 128/73 97
08/18/24 07:50 08/18/24 07:50 08/18/24 07:50 08/18/24 07:50 08/18/24 07:50
I&O
08/17/24 08/18/24 08/19/24
06:59 06:59 06:59
Intake Total 1160 / 1160 1869
Balance 1160 / 1160 1869
Physical Exam
Physical Exam
GI: Soft, Non Distended and Non Tender
[2024-08-18 12:26] LABS: Glucose - Point of Care 94 mg/dl (70-99)
--- NOTE | 2024-08-18 13:50 | W.DS.TRANS ---
DC Summary - Scanning Manager
-
Discharge Instructions:
Discharge Diagnosis/Procedures Constipation, Colitis
Diet Low Residue
Instructions:
Stand-Alone Forms:
Changes to Home Medications: Yes
Discharge Medications:
DC Medications w/original date entered in [employer]
acetaminophen 500 mg tablet (Tylenol Extra Strength) 1,000 mg PO BID Pain 08/16/24
aspirin 81 mg tablet,delayed release 81 mg PO DAILY Blood Clot Prevention/Tx 08/16/24
atorvastatin 40 mg tablet 40 mg PO HS High Cholesterol 08/16/24
baclofen 10 mg tablet 10 mg PO BID Muscle Spasms 08/16/24
cholecalciferol (vitamin D3) 125 mcg (5,000 unit) tablet (Vitamin D3) 125 mcg PO DAILY Supplement 08/16/24
clopidogrel 75 mg tablet 75 mg PO DAILY Blood Clot Prevention/Tx 08/16/24
gabapentin 300 mg capsule 300 mg PO BID Pain 08/16/24
mexiletine 150 mg capsule 150 mg PO BID Antiarrhythmic Agent 08/16/24
pantoprazole 40 mg tablet,delayed release 40 mg PO DAILY GERD 08/16/24
polyethylene glycol 3350 17 gram/dose oral powder (Miralax) 4 g PO DAILY #238 grams 08/18/24
Home Medication Changes
Miralax added
Pending Results: No
--- NOTE | 2024-08-18 13:59 | W.DS.TRANS ---
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
-
Discharge Instructions:
Discharge Diagnosis/Procedures Constipation, Colitis
Diet Low Residue
Instructions:
Stand-Alone Forms:
Changes to Home Medications: Yes
Discharge Medications:
DC Medications w/original date entered in [facility]
acetaminophen 500 mg tablet (Tylenol Extra Strength) 1,000 mg PO BID Pain 08/16/24
aspirin 81 mg tablet,delayed release 81 mg PO DAILY Blood Clot Prevention/Tx 08/16/24
atorvastatin 40 mg tablet 40 mg PO HS High Cholesterol 08/16/24
baclofen 10 mg tablet 10 mg PO BID Muscle Spasms 08/16/24
cholecalciferol (vitamin D3) 125 mcg (5,000 unit) tablet (Vitamin D3) 125 mcg PO DAILY Supplement 08/16/24
clopidogrel 75 mg tablet 75 mg PO DAILY Blood Clot Prevention/Tx 08/16/24
gabapentin 300 mg capsule 300 mg PO BID Pain 08/16/24
mexiletine 150 mg capsule 150 mg PO BID Antiarrhythmic Agent 08/16/24
pantoprazole 40 mg tablet,delayed release 40 mg PO DAILY GERD 08/16/24
amoxicillin 500 mg-potassium clavulanate 125 mg tablet (Augmentin) 1 tab PO BID #10 tabs 08/18/24
polyethylene glycol 3350 17 gram/dose oral powder (Miralax) 4 g PO DAILY #238 grams 08/18/24
Home Medication Changes
Augmentin and Miralax started
Pending Results: No
--- NOTE | 2024-08-18 15:13 | CM ---
Pt is being d/c home today. Per nurse, pt has been declining PT/OT and colonoscopy
Nurse spoke w/ son, Nikhil, about concerns for pt's current status and needs. Per nurse, pt's son states pt's needs are familiar and appears to be his baseline w/ needing assistance w/ being changed and assistance w/ bed mobility. Son is agreeable for
pt to d/c today.
IMM reviewed, copy on chart
Plan: Home; no needs
[2024-08-18 15:45] VITALS: BP 103/67
[2024-08-18 17:15] VITALS: BP 104/64
== END 2024-08-18 19:14 | disposition home or self-care (01) | DRG 392 ==
LOC: 4 WEST ACU 12:19
PROVIDERS: Clinical Nurse Specialist Family Health; ADMITTING PHYSICIAN Internal Medicine; ATTENDING PHYSICIAN Internal Medicine; CONSULT PHYSICIAN Internal Medicine Gastroenterology; EMERGENCY PHYSICIAN Emergency Medicine
DX: K59.09 Other constipation (principal); I69.354 Hemiplegia and hemiparesis following cerebral infarction affecting left non-dominant side; K52.89 Other specified noninfective gastroenteritis and colitis; E78.00 Pure hypercholesterolemia, unspecified; E11.40 Type 2 diabetes mellitus with diabetic neuropathy, unspecified; F17.200 Nicotine dependence, unspecified, uncomplicated; I25.10 Atherosclerotic heart disease of native coronary artery without angina pectoris; I25.2 Old myocardial infarction; K21.9 Gastro-esophageal reflux disease without esophagitis; N40.0 Benign prostatic hyperplasia without lower urinary tract symptoms; Z99.3 Dependence on wheelchair; Z95.5 Presence of coronary angioplasty implant and graft; Z95.1 Presence of aortocoronary bypass graft; Z79.82 Long term (current) use of aspirin; Z79.02 Long term (current) use of antithrombotics/antiplatelets
CPT/HCPCS: 74018; 74177; 80053; 82962; 85025; 96361; 96374; 99285; 99406; Q9967